=== PATIENT | female | born 1995 | race Caucasian/White ===

== ENCOUNTER 2017-03-17 12:20 | Emergency (ER) | payer OTHER ==
[2017-03-17 12:30] VITALS: RESP 18
--- NOTE | 2017-03-17 12:48 | ED PDOC ---
HPI: Abdomen Time Seen by Provider: 03/17/17 12:47 Chief Complaint (Nursing): GI Problem Chief Complaint (Provider): abdominal pain History Per: Patient (22 y/o female LMP 01/2017 here with vomiting/nausea ongoing. Has additional lower abdominal pain intermittent associated with spotting. Denies any dysuria/fevers/chills. Has not had care as of yet.) Past Medical History Reviewed: Historical Data, Nursing Documentation, Vital Signs Vital Signs: Last Vital Signs Temp 97.8 F 03/17/17 15:43 Pulse 71 03/17/17 15:43 Resp 18 03/17/17 15:43 BP 116/70 03/17/17 15:43 Pulse Ox 100 03/18/17 18:34 - Family History Family History: States: No Known Family Hx - Home Medications Home Medications: Ambulatory Orders Medication Instructions Recorded Ibuprofen [Motrin] 600 mg PO QID PRN #20 tab 05/19/14 Cephalexin [Keflex] 500 mg PO QID #20 capsule 03/17/17 Ondansetron [Zofran] 4 mg PO Q8H PRN #10 tab 03/17/17 - Allergies Allergies/Adverse Reactions: Allergies Allergy/AdvReac Type Severity Reaction Status Date / Time No Known Allergies Allergy Verified 05/19/14 08:50 Review of Systems ROS Statement: Except As Marked, All Systems Reviewed And Found Negative Gastrointestinal: Positive for: Nausea, Vomiting, Abdominal Pain Physical Exam - Reviewed Nursing Documentation Reviewed: Yes Vital Signs Reviewed: Yes - Physical Exam Appears: Positive for: Well, Non-toxic, No Acute Distress Head Exam: Positive for: ATRAUMATIC, NORMAL INSPECTION, NORMOCEPHALIC Skin: Positive for: Normal Color, Warm, DRY Eye Exam: Positive for: EOMI, Normal appearance, PERRL ENT: Positive for: Normal ENT Inspection Neck: Positive for: Normal, Painless ROM Cardiovascular/Chest: Positive for: Regular Rate, Rhythm Respiratory: Positive for: CNT, Normal Breath Sounds Gastrointestinal/Abdominal: Positive for: Normal Exam, Bowel Sounds, Soft Back: Positive for: Normal Inspection Extremity: Positive for: Normal ROM Neurologic/Psych: Positive for: Alert, Oriented - Laboratory Results Result Diagrams: 03/17/17 13:08 03/17/17 13:08 - ECG O2 Sat by Pulse Oximetry: 100 - Progress ED Course And Treament: US PELVIC: Single live intrauterine gestation of approximately 7 weeks 3 days. Small subchorionic hemorrhage. heart rate 116 beats per minute. Incidental small amount of fluid in cul-de-sac, nonspecific. NS 1 LITER WIDE OPEN Disposition - Clinical Impression Clinical Impression: Subchorionic hemorrhage, Threatened miscarriage, UTI (urinary tract infection) - Patient ED Disposition Is Patient to be Admitted: No - Disposition [facility] Disposition: Routine/Home Disposition Time: 14:56 Condition: FAIR Prescriptions: Cephalexin [Keflex] 500 mg PO QID #20 capsule Ondansetron [Zofran] 4 mg PO Q8H PRN #10 tab PRN Reason: Nausea/Vomiting Instructions: Threatened Miscarriage (ED), Urinary Tract Infection in (ED), Subchorionic Hemorrhage (ED) Forms: [facility] (Irish)
[2017-03-17] MEDS ORDERED: Sodium Chloride 0.9% 1,000 ML IV STA (12:49)
[2017-03-17 13:25] LABS: BASO % 0.4 % (0.0-2.0); EOS # 0.1 K/uL (0.0-0.7); EOS % 1.3 % (0.0-4.0); HEMATOCRIT 36.9 % (34.0-47.0); LYMPH # 1.8 K/uL (1.0-4.3); LYMPH % 21.1 % (20.0-40.0); MEAN CELL VOLUME 78.6 fl (81.0-99.0); MEAN CORPUSCULAR HEMOGLOBIN 26.1 pg (27.0-31.0); MEAN CORPUSCULAR HGB CONC 33.1 g/dL (33.0-37.0); MEAN PLATELET VOLUME 8.6 fl (7.2-11.7); MONO # 0.5 K/uL (0.0-0.8); MONO % 5.7 % (0.0-10.0); NEUT # 6.2 K/uL (1.8-7.0); NEUT % 71.5 % (50.0-75.0); RED CELL DISTRIBUTION WIDTH 15.4 % (11.5-14.5); WHITE BLOOD COUNT 8.7 K/uL (4.8-10.8)
[2017-03-17 13:37] LABS: ALB/GLOB RATIO 1.6 (1.0-2.1); ALKALINE PHOSPHATASE 45 U/L (38-126); ALT/SGPT 31 U/L (9-52); AST/SGOT 22 U/L (14-36); BILIRUBIN,TOTAL 0.5 mg/dl (0.2-1.3); BLOOD UREA NITROGEN 9 mg/dl (7-17); CALCIUM 9.5 mg/dL (8.4-10.2); CARBON DIOXIDE 21 mmol/L (22-30); CHLORIDE 104 mmol/L (98-107); GFR AFRICAN-AMERICAN > 60; GLUCOSE,RANDOM 97 mg/dL (65-105); POTASSIUM 3.7 MMOL/L (3.6-5.0); SODIUM 139 mmol/l (132-148); TOTAL PROTEIN 6.9 G/DL (6.3-8.2)
[2017-03-17 13:43] LABS: RBC URINE 3 /hpf (0-3); URINE BILIRUBIN NEGATIVE (NEGATIVE); URINE BLOOD SMALL (NEGATIVE); URINE COLOR YELLOW (YELLOW); URINE GLUCOSE (UA) NEG (Normal); URINE KETONE NEGATIVE (NEGATIVE); URINE LEUKOCYTE ESTERASE LARGE Leu/uL (Negative); URINE PROTEIN NEGATIVE (NEGATIVE); URINE UROBILINOGEN 0.2-1.0 mg/dL (0.2-1.0); WBC URINE 21 /hpf (0-5)
--- NOTE | 2017-03-17 14:06 | US ---
PROCEDURE: OB Pelvic Ultrasound HISTORY: r/o ectopic COMPARISON: None available. FINDINGS: UTERUS: Single Live intrauterine gestation. CRL equivalent to 6 weeks 6 days gestatioin Gestational sac diameter equivalent to 7 weeks 6 days gestation age (Ultrasound estimated): 7 weeks 3 days Date of delivery (Ultrasound estimated) : 10/31/2017 Heart rate: 115 bpm. Deisy-gestational hemorrhage: Small, approximately 4 x 9 mm. Uterus measures 9.1 x 6.4 x 5.4 cm. No mass CERVIX: Long and closed. No cervical abnormality seen. RIGHT OVARY: Measures 3.2 x 2.4 x 2.0 cm. No mass. Normal flow. LEFT OVARY: Not visualized FREE FLUID: Small OTHER FINDINGS: None. IMPRESSION: Single live intrauterine gestation of approximately 7 weeks 3 days. Small subchorionic hemorrhage. heart rate 116 beats per minute. Incidental small amount of fluid in cul-de-sac, nonspecific.
[2017-03-17 15:44] VITALS: BP 116/70; PULSE 71; TEMP 97.8
[2017-03-18 16:50] VITALS: O2SAT 100
== END 2017-03-17 15:44 | disposition home or self-care (01) ==
LOC: H.ER 12:20
DX: O20.0 Threatened abortion (principal); O23.40 Unspecified infection of urinary tract in pregnancy, unspecified trimester; O20.8 Other hemorrhage in early pregnancy
CPT/HCPCS: 76817; 80053; 81003; 81025; 84702; 85025; 86850; 86900; 87086; 96361; 96374; 99282; J2405; J7040